=== PATIENT | female | born 1990 | race Caucasian/White ===

== ENCOUNTER 2016-11-05 09:54 | Emergency (ER) | payer OTHER ==
[2016-11-05 10:00] VITALS: RESP 16; TEMP 97.9
--- NOTE | 2016-11-05 10:45 | EDPHY ---
H & P Time Seen by Provider: 11/05/16 10:06 HPI/ROS: CHIEF COMPLAINT: Fatigue HISTORY OF PRESENT ILLNESS: 26-year-old female presents to the emergency department complaining of severe fatigue over the last 1 month. Patient states that she has also been slightly nauseous. Her last menstrual period was 3 weeks ago and she denies . She states that her fatigue began a month ago and has been getting progressively worse. She denies pain in her chest. She has never had this in the past. She denies headache. Denies neck or back pain. She takes prescribed medication for depression, citalopram, which she started back in June. She does not take any other prescribed medication. Denies urinary symptoms. REVIEW OF SYSTEMS: Constitutional: No fever, no chills. Eyes: No double or blurry vision. ENT: No sore throat. Respiratory: No cough, no shortness of breath. Cardiac: No chest pain. Gastrointestinal: No abdominal pain, vomiting or diarrhea. Genitourinary: No dysuria. Musculoskeletal: No neck or back pain. Skin: No rashes. Neurological: No headache. Past Medical/Surgical History: Depression Social History: student affairs dean Smoking Status: Never smoked Physical Exam: General Appearance: Alert, no distress. Vital signs are stable. Eyes: Pupils equal and round. Extraocular motions are all intact. ENT: Mouth: Mucous membranes moist. Respiratory: No wheezing, rhonchi, or rales, lungs are clear to auscultation. Cardiovascular: Regular rate and rhythm. Gastrointestinal: Abdomen is soft and nontender, no masses, no rebound or guarding, bowel sounds normal. Neurological: Alert and oriented x 3, cranial nerves II through XII grossly intact Skin: Warm and dry, no rashes. Musculoskeletal: Nontender to palpate along the cervical, thoracic or lumbar spine. Neck is supple. Extremities: Full range of motion and no peripheral edema. Psychiatric: Patient is oriented X 3, there is no agitation. Constitutional: Initial Vital Signs Temperature (C) 36.6 C 11/05/16 09:55 Heart Rate 84 11/05/16 09:55 Respiratory Rate 16 11/05/16 09:55 Blood Pressure 113/83 H 11/05/16 09:55 O2 Sat (%) 98 11/05/16 09:55 O2 Delivery Mode Room Air Allergies/Adverse Reactions: No Known Allergies Allergy (Unverified 11/05/16 10:00) Home Medications: Medication Instructions Recorded Citalopram [CeleXA] 20 mg PO 11/05/16 Medical Decision Making ED Course/Re-evaluation: 26-year-old female presents to the emergency department feeling fatigue. Laboratory studies including TSH per her request were all within normal limits. A Lyme PCR is pending since she recently just moved from [place] where Lymes is prevalent. The case was discussed with Dr. Melina Galvan, supervising physician. I do not think this patient needs admission to the hospital. She was given primary care referral. Her symptoms have been present for over 1 month. Differential Diagnosis: Fatigue including but not limited to , electrolyte abnormality, depression, anxiety, infectious causes. - Data Points Laboratory Results: Laboratory Results 11/05/16 10:44 11/05/16 10:44 11/05/16 11/05/16 11/05/16 10:44 10:44 10:44 WBC RBC Hgb Hct MCV MCH MCHC RDW Plt Count MPV Neut % (Auto) Lymph % (Auto) [place] % (Auto) Eos % (Auto) Baso % (Auto) Nucleat RBC Rel Count Absolute Neuts (auto) Absolute Lymphs (auto) Absolute Monos (auto) Absolute Eos (auto) Absolute Basos (auto) Absolute Nucleated RBC Immature Gran % Immature Gran # Sodium 143 mEq/L mEq/L (134-144) Potassium 4.4 mEq/L mEq/L (3.5-5.2) Chloride 108 mEq/L mEq/L (97-110) Carbon Dioxide 21 mEq/l L mEq/l (22-31) Anion Gap 14 mEq/L mEq/L (8-16) BUN 9 mg/dL mg/dL (7-23) Creatinine 0.7 mg/dL mg/dL (0.6-1.0) Estimated GFR > 60 Glucose 74 mg/dL mg/dL (70-100) Calcium 9.6 mg/dL mg/dL (8.5-10.4) TSH 2.050 uIU/mL uIU/mL (0.465-4.680) Beta HCG, Qual NEGATIVE B. burgdorferi DNA Pending Lyme DNA Comment Pending B.garinii/afzelii PCR Pending B. mayonii (PCR) Pending 11/05/16 10:44 WBC 4.73 10^3/uL 10^3/uL (3.80-9.50) RBC 4.41 10^6/uL 10^6/uL (4.18-5.33) Hgb 13.9 g/dL g/dL (12.6-16.3) Hct 41.6 % % (38.0-47.0) MCV 94.3 fL fL (81.5-99.8) MCH 31.5 pg pg (27.9-34.1) MCHC 33.4 g/dL g/dL (32.4-36.7) RDW 12.4 % % (11.5-15.2) Plt Count 198 10^3/uL 10^3/uL (150-400) MPV 11.0 fL fL (8.7-11.7) Neut % (Auto) 49.7 % % (39.3-74.2) Lymph % (Auto) 39.5 % % (15.0-45.0) [place] % (Auto) 7.6 % % (4.5-13.0) Eos % (Auto) 1.9 % % (0.6-7.6) Baso % (Auto) 1.1 % % (0.3-1.7) Nucleat RBC Rel Count 0.0 % % (0.0-0.2) Absolute Neuts (auto) 2.35 10^3/uL 10^3/uL (1.70-6.50) Absolute Lymphs (auto) 1.87 10^3/uL 10^3/uL (1.00-3.00) Absolute Monos (auto) 0.36 10^3/uL 10^3/uL (0.30-0.80) Absolute Eos (auto) 0.09 10^3/uL 10^3/uL (0.03-0.40) Absolute Basos (auto) 0.05 10^3/uL 10^3/uL (0.02-0.10) Absolute Nucleated RBC 0.00 10^3/uL 10^3/uL (0-0.01) Immature Gran % 0.2 % % (0.0-1.1) Immature Gran # 0.01 10^3/uL 10^3/uL (0.00-0.10) Sodium Potassium Chloride Carbon Dioxide Anion Gap BUN Creatinine Estimated GFR Glucose Calcium TSH Beta HCG, Qual B. burgdorferi DNA Lyme DNA Comment B.garinii/afzelii PCR B. mayonii (PCR) Departure - Departure Disposition: Home, Routine, Self-Care Clinical Impression: Fatigue Qualifiers: Fatigue type: unspecified Qualified Code(s): R53.83 - Other fatigue Condition: Good Instructions: Fatigue (ED) Additional Instructions: Call [phone] for the results of your Lyme PCR in 1 week. Follow up with primary care provider to recheck as discussed. Return to the emergency department if you have fainting episode, chest pain, or if you feel worse in any way. Referrals: Christina Mcmullen MD [Medical Doctor] - 2-3 days, call for appt. (Primary care provider production tech)
--- NOTE | 2016-11-05 10:52 | CPEKG ---
Heart Rate: 56 RR Interval: 1071 P-R Interval: 120 QRSD Interval: 76 QT Interval: 424 QTC Interval: 410 P [place]: 68 QRS [place]: 94 T Wave [place]: 13 EKG Severity - BORDERLINE ECG - EKG Impression: SINUS ARRHYTHMIA, RATE 48-65 EKG Impression: BORDERLINE RIGHT AXIS DEVIATION EKG Impression: BORDERLINE T ABNORMALITIES, ANTERIOR LEADS Electronically Signed By: Melina Galvan 05-Nov-2016 14:37:39
[2016-11-05 10:59] LABS: % IMMATURE GRANULYOCYTES 0.2 % (0.0-1.1); ABSOLUTE IMMATURE GRANULOCYTES 0.01 10^3/uL (0.00-0.10); ADD DIFF? NO; ADD MORPH? NO; ADD SCAN? NO; ATYPICAL LYMPHOCYTE FLAG 20 (0-99); FRAGMENT RBC FLAG 10 (0-99); HEMATOCRIT 41.6 % (38.0-47.0); HEMOGLOBIN 13.9 g/dL (12.6-16.3); LEFT SHIFT FLG 0 (0-99); LIPEMIA HEMOLYSIS FLAG 80 (0-99); MEAN CELL HEMOGLOBIN 31.5 pg (27.9-34.1); MEAN CELL HEMOGLOBIN CONCENTR. 33.4 g/dL (32.4-36.7); MEAN CELL VOLUME 94.3 fL (81.5-99.8); PLATELET CLUMPS FLAG 10 (0-99); PLATELET COUNT 198 10^3/uL (150-400); RED BLOOD CELL COUNT 4.41 10^6/uL (4.18-5.33); RED CELL DISTRIBUTION WIDTH 12.4 % (11.5-15.2)
[2016-11-05 11:23] LABS: ANION GAP 14 mEq/L (8-16); CALCIUM 9.6 mg/dL (8.5-10.4); CARBON DIOXIDE 21 mEq/l (22-31); CHLORIDE 108 mEq/L (97-110); CREATININE 0.7 mg/dL (0.6-1.0); GLOMERULAR FILTRATION RATE > 60; GLUCOSE 74 mg/dL (70-100); POTASSIUM 4.4 mEq/L (3.5-5.2); SODIUM 143 mEq/L (134-144)
[2016-11-05 13:15] VITALS: BP 108/58; PULSE 47; O2SAT 99
[2016-11-07 23:20] LABS: LYME DISEASE PCR COMMENT See Comments
== END 2016-11-05 13:15 | disposition home or self-care (01) ==
DX: R53.83 Other fatigue (principal)